=== PATIENT | male | born 1965 | race Two or more races ===

== ENCOUNTER 2019-09-19 21:39 | Emergency (ER) | payer BC ==
[~2019-09-19] VITALS: Ht 162.6 cm; Wt 70.3 kg
[2019-09-20] MEDS ORDERED: BACITRACIN TOP OINT 1 UD PKG TOP ONE (01:30)
[2019-09-20 01:43] VITALS: BP 138/85
== END 2019-09-20 01:51 | disposition home or self-care (01) ==
LOC: ER 21:39
DX: S01.01XA Laceration without foreign body of scalp, initial encounter (principal); X58.XXXA Exposure to other specified factors, initial encounter; Y93.89 Activity, other specified; Y92.89 Other specified places as the place of occurrence of the external cause; Y99.8 Other external cause status
CPT/HCPCS: 12002; 70450

== ENCOUNTER 2023-02-10 14:23 | Emergency (ER) | payer SELFPAY ==
[~2023-02-10] VITALS: Ht 162.6 cm; Wt 72.5 kg
[2023-02-10] MEDS ORDERED: DexAMETHasone SOD PHOS 10MG/1ML VIAL INJ IM ONE (15:45)
[2023-02-10] MEDS ORDERED: diphenhdrAMINE HCL 50 MG/1 ML VL IM ONE (15:45)
[2023-02-10] MEDS ORDERED: FAMOTIDINE 20 MG TAB PO ONE (15:45)
[2023-02-10] MEDS ORDERED: HYDR25CA PO (16:56)
[2023-02-10] MEDS ORDERED: PRED20TA2 PO (16:56)
[2023-02-10] MEDS ORDERED: FLUO0.05 TOP (16:56)
[2023-02-10] MEDS ORDERED: CLOT1CRE7 EX (16:56)
[2023-02-10 19:30] VITALS: BP 133/91; PULSE 66; RESP 16; TEMP 98.1; O2SAT 97
== END 2023-02-10 20:00 | disposition home or self-care (01) ==
LOC: ER 14:23
DX: L30.9 Dermatitis, unspecified (principal)
CPT/HCPCS: 96372; 99284; J1100; J1200